=== PATIENT | female | born 1955 | race Caucasian/White ===

== ENCOUNTER 2020-05-06 15:01 | Inpatient (IN) | payer MEDICARE, OTHER ==
[~2020-05-06] VITALS: Ht 177.8 cm; Wt 71.7 kg
[2020-05-06] MEDS ORDERED: OLAN10TA3 PO (15:34)
[2020-05-06] MEDS ORDERED: NICO-671 TP (15:34)
[2020-05-06] MEDS ORDERED: RISP1TAB97 PO (15:34)
--- NOTE | 2020-05-06 17:38 | NUR ---
dinner tray provided for pt.
--- NOTE | 2020-05-06 18:51 | NUR ---
pt daughter at bedside, braught clothing, pt got aggrevated and started to yell mike appiah. at bedside.
[2020-05-06] MEDS ORDERED: OLANZAPINE 5 MG TABLET ONE (18:58)
[2020-05-06] MEDS ORDERED: LORAZEPAM 1 MG TABLET ONE (18:58)
[2020-05-06] MEDS ORDERED: OLANZAPINE 5 MG TABLET PO ONE (19:00)
[2020-05-06] MEDS ORDERED: LORAZEPAM 0.5 MG TABLET PO ONE (19:00)
--- NOTE | 2020-05-06 19:26 | NUR ---
According to Violet Gan RN from [facility] patient was never placed on a psychiatric hold. They stated that patient, "wished to come for psychiatric admission voluntary". Despite the consultation note that they sent with the patient it states there that the patient will need to come in involuntarily for higher level of care.
--- NOTE | 2020-05-06 19:27 | NUR ---
[facility] has been contacted to come evaluate the patient. ETA within an hour,
--- NOTE | 2020-05-06 20:08 | NUR ---
Calli RN here for eval.
--- NOTE | 2020-05-06 20:57 | NUR ---
Covid swab collected and sent to laboratory.
--- NOTE | 2020-05-06 21:28 | NUR ---
Patient transported to MHU in stable condition.
[2020-05-06 21:30] VITALS: BP 99/67
[2020-05-06] MEDS ORDERED: BLOOD SUGAR DIAGNOSTIC 1 EACH STRIP VI ONE (21:30)
[2020-05-06] MEDS ORDERED: MAG HYDROX/AL HYDROX/SIMETH 30 ML LIQUID UDC PO PRN (21:30)
[2020-05-06] MEDS ORDERED: TEMAZEPAM 7.5 MG CAPSULE PO PRN (21:30)
[2020-05-06] MEDS ORDERED: MAGNESIUM HYDROXIDE 30 ML LIQUID UDC PO PRN (21:30)
--- NOTE | 2020-05-06 22:50 | NUR ---
GPS ADMISSION NOTE : Patient is a 64 year old female , brought in by ambulance , to [facility] from [facility] in [place] on a 5150 for GD. Per the hold, patient was staying with her daughter and became increasingly agitated, verbally abusive and paranoid. Hold states patient has a history of being Schizophrenic and has stopped taking her medications for a month. Upon face to face evaluation, patient presents calm , alert and oriented. When jingle writer was interviewing patient, the patient made delusional statements and was unable to verbalize clearly what brought her into the hospital. Patient minimized the interactions with her daughter and said " [place] and [place] in [place]. It makes me so mad that my daughter would bring me to the hospital against my will and for no reason". According to the report from the ER , this patient had eloped from [facility] and was found when daughter went to look for her in her car and brought her back. At that time it is reported that the patient was agitated, and required medication. This patient is disorganized and unable to engage in any meaningful conversation without tangential speech. A copy of the advisement and a Patients Rights Handbook was provided to the patient along with a orientation to the unit and the rules. Patient took a shower and declined PRN medications. VS are stable and belongings inventoried and put in the locker. Continuing to monitor the patient for safety and possible behavior escalation.
--- NOTE | 2020-05-07 06:04 | NUR ---
After patients admission process, patient went to bed and slept 7.00 hours. No issues noted during the night.
[2020-05-07 07:30] VITALS: BP 126/85
[2020-05-07] MEDS: NICOTINE 21 MG/24HR PATCH TD SCH (08:40)
[2020-05-07] MEDS: DIVALPROEX 250 MG TABLET.DR PO SCH ×3 (11:47→16:40)
[2020-05-07] MEDS: risperiDONE 1 MG/ML UDC GT SCH ×2 (11:47→16:40)
--- NOTE | 2020-05-07 11:55 | NUR ---
SANJAY Initial Discharge Plan: Patient was currently residing at home [address] [place] [address] with daughter Jez Fernandez ([phone]). Patient would like SNF placement upon discharge. SANJAY discussed the possibility of SNF placement. SW left voicemail for patient's daughter, Jez ([phone]). SANJAY will continue to work with patient, family, and MD to ensure a safe and proper discharge plan.
--- NOTE | 2020-05-07 11:56 | NUR ---
Firearms Report: Gimp Tacker completed and submitted a [employer] firearms report for 5150 grave disability certifications. A copy of report has been placed in patient chart.
--- NOTE | 2020-05-07 12:13 | NUR ---
Brief Substance Abuse Intervention: Patient was provided with a brief substance abuse intervention and referred to the following substance abuse programs: [facility] ([phone]); [facility] [address] [place] [address] ([phone]); [facility] [address] [facility] [address] ([phone]); [facility] ([phone]); [facility] ([phone]); [facility] ([phone]); [facility] ([phone]).
[2020-05-07 16:00] VITALS: BP 104/75
[2020-05-07] MEDS: LORAZEPAM 0.5 MG TABLET PO PRN (17:30)
--- NOTE | 2020-05-07 17:39 | NUR ---
Patient continue behavioral monitoring, anxious and agitation noted during rounds. Patient ativan 05mg PRN PO given with good effect. will continue monitor
[2020-05-07 20:21] VITALS: BP 101/68
--- NOTE | 2020-05-08 06:51 | NUR ---
PT SLEPT 5.15 H. PT IN NO ACUTE DISTRESS. SAFETY AND COMFORT PROVIDED. PT ATIVAN PRN AND TYLENOL PRN WASTED ON THE PYXIS AND WITNESSED BY ANOTHER RN. WILL CONTINUE TO MONITOR.
[2020-05-08 07:30] VITALS: BP 121/83
[2020-05-08] MEDS: NICOTINE 21 MG/24HR PATCH TD SCH (10:08)
[2020-05-08] MEDS: DIVALPROEX 250 MG TABLET.DR PO SCH ×3 (10:09→17:29)
[2020-05-08] MEDS: risperiDONE 1 MG/ML UDC GT SCH (10:09)
--- NOTE | 2020-05-08 10:55 | NUR ---
SANJAY Family Contact: SANJAY left voicemail for patient's daughter, Jez ([phone]).
[2020-05-08 16:41] VITALS: BP 148/93
[2020-05-08] MEDS: risperiDONE 1 MG/ML UDC PO SCH (17:29)
[2020-05-08 20:11] VITALS: BP 140/96
--- NOTE | 2020-05-08 21:20 | NUR ---
Received patient reading in her room. No s/s of distress noted. Patient is calm and goal oriented to finding housing and her sons. Engages in meaningful conversation when initiated. q15 min checks for safety in place.
[2020-05-09] MEDS: ACETAMINOPHEN 325 MG TABLET PO PRN ×2 (04:03→10:35)
--- NOTE | 2020-05-09 06:39 | NUR ---
Patient slept 1 hour. PRN Restoril and Tylenol given per order. Pt anxious through out the night, pacing around her room, and reading materials. Goal oriented to leave stating "Im being held here against my will". No s/s of acute distress or behavioral disruptions noted. All needs were met and attended to. Q15 min safety checks remain intact.
[2020-05-09 07:30] VITALS: BP 141/111
[2020-05-09] MEDS: DIVALPROEX 250 MG TABLET.DR PO SCH ×3 (08:36→16:10)
[2020-05-09] MEDS: NICOTINE 21 MG/24HR PATCH TD SCH (08:37)
[2020-05-09] MEDS: risperiDONE 1 MG/ML UDC PO SCH ×2 (08:37→16:10)
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
--- NOTE | 2020-05-09 10:47 | NUR ---
SANJAY SNF Referral: SW faxed patient's referral packet to [facility] attention to Anat admin coord. ([phone]) for review and possible placement.
--- NOTE | 2020-05-09 11:52 | NUR ---
SANJAY Individual Therapy Note: SW met with patient today and provided brief individual counseling to address patient's presenting problem of delusional thought content. Patient continues to has poor insight into her mental illness. Patient states "I don't have a mental problem I was brought for heart evaluation and medical medications". SW redirected patient and helped to gain insight into the reason for her hospitalization. SANJAY however discussed briefly patient's discharge plan. Patient stated she would like SNF placement. SANJAY validated and informed that we are working on SNF placement. Patient refuses to accept reality at this time. SW will remain available for patient for continued supportive counseling.
[2020-05-09 16:00] VITALS: BP 150/98
--- NOTE | 2020-05-09 19:39 | NUR ---
PATIENT REMAINS COOPERATIVE WITH TREATMENT PLAN. COMPLIENT WITH MEDICATIONS. NO IM GIVEN SAFETY PRECAUTIONS IN PLACE. WILL REPORT TO NIGHT NURSE.
[2020-05-09 20:15] VITALS: BP 114/68
--- NOTE | 2020-05-10 06:42 | NUR ---
GPS: Remain calm and cooperative with nursing care. took shower this morning.self care. slept 7.30 hrs through the night. No s/s of acute distress or behavioral disruptions noted. All needs were met and attended to. Q15 min safety checks. resting in bed comfortably. continue plan of care
[2020-05-10 07:30] VITALS: BP 125/90
[2020-05-10] MEDS: DIVALPROEX 250 MG TABLET.DR PO SCH ×3 (10:11→17:43)
[2020-05-10] MEDS: NICOTINE 21 MG/24HR PATCH TD SCH (10:12)
[2020-05-10] MEDS: risperiDONE 1 MG/ML UDC PO SCH ×2 (10:12→17:43)
[2020-05-10] MEDS: ACETAMINOPHEN 325 MG TABLET PO PRN (15:12)
[2020-05-10 15:30] VITALS: BP 124/80
[2020-05-10 20:13] VITALS: BP 131/99
--- NOTE | 2020-05-11 05:43 | NUR ---
Shift End Report: Vs stable. Ambulatory with slow steady gait. No fall/injury. Been calm, cooperative and compliant to plan of care. No agitation, paranoia and delusion . Slept 5.45 hours. No complaint presented throughout the night. Continue current plan of care.
[2020-05-11 07:30] VITALS: BP 141/102
[2020-05-11] MEDS: NICOTINE 21 MG/24HR PATCH TD SCH (08:36)
[2020-05-11] MEDS: DIVALPROEX 250 MG TABLET.DR PO SCH ×3 (08:36→16:54)
[2020-05-11] MEDS: risperiDONE 1 MG/ML UDC PO SCH ×2 (08:36→16:55)
--- NOTE | 2020-05-11 09:00 | NUR ---
ALERT AND ORIENTED BUT IS FORGETFUL ABLE TO RELAY NEEDS SHE IS COMPLIANT WITH MEDICATIONS AND CARE WILL CONTINUE TO PROVIDE SAFE AND THERAPEUTIC ENVIRONMENT AT ALL TIMES.
[2020-05-11 16:00] VITALS: BP 146/106
--- NOTE | 2020-05-11 18:00 | NUR ---
COMPLIANT WITH MEDICATIONS AND CARE WAS CONVERSING WITH HER FAMILY ON THE PHONE FOR A WHILE AND THEN WAS SHOWING ME HER DRAWINGS IN HER BOOK SEEM TO BE IN GOOD SPIRITS THIS EVENING WILL CONTINUE TO PROVIDE SAFE AND THERAPEUTIC ENVIRONMENT AT ALL TIMES
[2020-05-11 20:25] VITALS: BP 132/94
--- NOTE | 2020-05-12 05:52 | NUR ---
Patient alert and oriented x3. At the beginning of the shift, patient requested a sleeping pill but when functional tester typewriters brought it, the patient was already asleep. Medication returned . Patient slept 8.00 hours and is still asleep at this time. Water Pollution Scientist spoke with patient and she denied SI and did not have any delusional thinking noted during the shift. Continuing to monitor for safety and continuing with treatment plan.
[2020-05-12 07:30] VITALS: BP 148/95
[2020-05-12] MEDS: risperiDONE 1 MG/ML UDC PO SCH ×2 (08:36→16:51)
[2020-05-12] MEDS: NICOTINE 21 MG/24HR PATCH TD SCH (08:36)
[2020-05-12] MEDS: DIVALPROEX 250 MG TABLET.DR PO SCH ×4 (08:36→16:42)
--- NOTE | 2020-05-12 09:00 | NUR ---
PATIENT IS ALERT ORIENTED BUT IS FORGETFUL DELUSIONAL AND DEPRESSED HAS BEEN COMPLIANT WITH HER AM MEDICATIONS SPENDS A LOT OF TIME IN HER ROOM ENCOURAGED TO ATTEMPT TO ENGAGE WITH OTHER PATIENTS AND PARTICIPATE IN ACTIVITIES ABLE WILL CONTINUE TO PROVIDE SAFE AND THERAPEUTIC ENVIRONMENT AT ALL TIMES.
--- NOTE | 2020-05-12 12:20 | NUR ---
PATIENT REFUSED HER DEPAKOTE STATED THAT SHE ALREADY TOOK IT AND DID NOT WANT TO KEEP TAKING MEDICATIONS REASSURED HER THAT SHE TOOK IT THIS MORNING AND SINCE IT WAS ORDERED 3 TIMES A DAY SHE NEEDED TO TAKE IT AGAIN NOW BUT SHE CONTINUED TO REFUES TO TAKE IT.
[2020-05-12 15:25] VITALS: BP 131/84
--- NOTE | 2020-05-12 17:00 | NUR ---
CALL RECEIVED FROM PATIENTS DAUGHTER LOLIS STATED THAT PATIENT HAD CALLED HER AND WANTS HER TO PICK HER UP TOMORROW THAT SHE WILL BE DISCHARGED IN THE MORNING EXPLAINED TO THE DAUGHTER THAT IN FACT THERE IS NO DISCHARGE ORDER FOR HER MOM TO BE DISCHARGED TOMORROW AND THAT SHE SHOULD GET IN TOUCH WITH THE COMPUTER APPLICATION DEVELOPER KYLIE FOR MORE DETAILS I ALSO SPOKE WITH THE PATIENT AND INFORMED HER THAT SHE IS NOT BEING DISCHARGED TOMORROW BUT SHE STATED THAT SHE WILL LIKE TO LEAVE TOMORROW BECAUSE SHE WAS NOT SURE IF HER INSURANCE WILL BE ABLE TO COVER HER STAY HERE.REASSURED PATIENT THAT THIS WILL BE WORKED OUT BY THE DIP STAND LOADER HAND I TUBE BENDER WILL ENDORSE FOR THE COMPUTER APPLICATION DEVELOPER TO REASSURE PATIENT TOMORROW.
[2020-05-12 20:18] VITALS: BP 142/78
[2020-05-12] MEDS: LORAZEPAM 0.5 MG TABLET PO PRN (20:24)
[2020-05-13] MEDS: ACETAMINOPHEN 325 MG TABLET PO PRN ×2 (01:19→16:19)
[2020-05-13] MEDS: LORAZEPAM 0.5 MG TABLET PO PRN (04:33)
--- NOTE | 2020-05-13 05:46 | NUR ---
Patient slept for a total of 5.30 hours last night. At the start of the shift, this patient was unable to engage in any meaningful conversation without becoming delusional. This patient is fixated on going [place] When discussing medication compliance upon discharge patient stated, "I'll be okay with my big bag of joyce." Humanities And Languages Professor tried to encourage medication compliance per physician orders with minimal response. Will continue to educate patient, redirect and monitor behaviors.
[2020-05-13 07:30] VITALS: BP 130/91
[2020-05-13] MEDS: DIVALPROEX 250 MG TABLET.DR PO SCH ×3 (08:04→16:19)
[2020-05-13] MEDS: risperiDONE 1 MG/ML UDC PO SCH ×2 (08:04→16:19)
[2020-05-13] MEDS: NICOTINE 21 MG/24HR PATCH TD SCH (08:04)
--- NOTE | 2020-05-13 09:29 | NUR ---
SANJAY Family Contact: SANJAY spoke with patient's daughterJez ([phone]) regarding updated treatment and discharge plan.
--- NOTE | 2020-05-13 09:34 | NUR ---
patient alert and oriented. she is cooperative, redirectable, but is anxious, guarded, withdrawn to her room, and appears suspicious of staff. patient denies SI/HI, denies AH/VH. patient is adherent with medication, no adverse reaction noted. patient unkempt in her own clothing. patient encouraged to participate in the unit milieu. patient able to perform self care and ADL's independently. provided with education about impulse control and safety.
[2020-05-13 15:21] VITALS: BP 101/65
--- NOTE | 2020-05-13 15:36 | NUR ---
SANJAY Individual Therapy Note: SW met with patient today and provided brief individual counseling to address patient's presenting problem of delusional thought content. Patient presents withdrawn and isolative in her room. Patient appears disheveled and forgetful. patient continues to minimize her mental illness and has poor insight into her presenting problems. SANJAY discussed discharge planing with the patient. Patient is agreeable with going to [facility] upon discharge. SW will remain available for patient for continued supportive counseling.
[2020-05-13] MEDS: ATORVASTATIN 20 MG TABLET PO SCH (20:03)
[2020-05-13 20:16] VITALS: BP 121/81
[2020-05-13] MEDS: TEMAZEPAM 15 MG CAPSULE PO PRN (20:55)
[2020-05-14] MEDS: ACETAMINOPHEN 325 MG TABLET PO PRN ×4 (01:15→21:16)
[2020-05-14 07:46] LABS: BASOPHILS # (AUTO) 0.1 K/uL (0.0-8.0); BASOPHILS % (AUTO) 1.4 % (0.0-2.0); EOSINOPHILS # (AUTO) 0.5 K/uL (0.0-0.7); EOSINOPHILS % (AUTO) 7.5 % (0.0-7.0); HEMATOCRIT 41.7 % (31.2-41.9); HEMOGLOBIN 13.8 g/dL (10.9-14.3); LYMPHOCYTES # (AUTO) 2.1 K/uL (20.0-40.0); LYMPHOCYTES % (AUTO) 31.4 % (20.5-51.5); MEAN CORPUSCULAR HEMOGLOBIN 29.7 uug (24.7-32.8); MEAN CORPUSCULAR HGB CONC 33 g/dL (32.3-35.6); MEAN CORPUSCULAR VOLUME 89.8 fL (75.5-95.3); MONOCYTES # (AUTO) 0.6 K/uL (2.0-10.0); MONOCYTES % (AUTO) 8.6 % (0.0-11.0); NEUTROPHILS # (AUTO) 3.5 K/uL (1.8-8.9); NEUTROPHILS % (AUTO) 51.1 % (38.5-71.5); PLATELET COUNT (AUTO) 248 K/uL (179-408); RED BLOOD CELL COUNT(AUTO) 4.65 MIL/uL (3.63-4.92); WHITE BLOOD COUNT (AUTO) 6.8 K/uL (3.8-11.8)
[2020-05-14 07:58] LABS: BILIRUBIN,TOTAL 0.4 mg/dL (0.2-1.0); CREATININE 0.7 mg/dL (0.6-1.3); MAGNESIUM 2.3 mg/dL (1.8-2.4); PHOSPHOROUS 3.8 mg/dL (2.5-4.9); TOTAL PROTEIN, SERUM 6.7 g/dL (6.4-8.2)
[2020-05-14 08:06] LABS: THYROID STIMULATING HORMONE 2.91 mIU/mL (0.358-3.740)
[2020-05-14 08:23] VITALS: BP 149/90
[2020-05-14] MEDS: DIVALPROEX 250 MG TABLET.DR PO SCH ×3 (09:27→17:17)
[2020-05-14] MEDS: risperiDONE 1 MG/ML UDC PO SCH ×2 (09:29→17:18)
[2020-05-14] MEDS: NICOTINE 21 MG/24HR PATCH TD SCH (09:29)
--- NOTE | 2020-05-14 10:10 | NUR ---
Received pt ambulating in hallway, alert, able to verbalize needs. Pt noted isolative, anxious, and fixated on health concerns and medications, reassurance provided. Pt reported toothache pain, PRN Tylenol administered per order. Medications administered per order, pt adherent, no a/r noted. When asked if she knew where she was, pt stated "in hell". Redirection and reality orientation provided, encouraged pt to express feelings and participate in milieu. Pt denies SI/HI/VH/AH at this time. Pt able to verbally CFS. Pt able to ambulate safely and perform self care. Safe environment ensured. Will continue to monitor.
[2020-05-14 16:00] VITALS: BP 123/93
[2020-05-14 16:50] LABS: *BILIRUBIN,URIN NEGATIVE (NEGATIVE); *BLOOD, URINE NEGATIVE (NEGATIVE); *CLARITY,URINE CLEAR (CLEAR); *COLOR,URINE LIGHT YELLOW (YELLOW); *KETONES,URINE NEGATIVE (NEGATIVE); *UROBILINOGEN,URINE 0.2 E.U./dl (NORMAL); LEUKOCYTE ESTERASE ,URINE NEGATIVE (NEGATIVE); NITRITE, URINE NEGATIVE (NEGATIVE); UGLUCOSE NEGATIVE (NEGATIVE)
--- NOTE | 2020-05-14 19:05 | NUR ---
EOSS: Pt in ambulating in hallway, asking for PRN pain medication. This global technical writer informed pt that it was change of shift and report needed to be given before medications could be administered. Pt continued fixation on health and medications. Reassurance and redirection provided PRN. Due medications given per order, no a/r noted. VSS. Pt able to ambulate safely and provide self care. Pt with minimal participation in group and with peers. Safe environment and fall precautions maintained. Will endorse care to marina manager nurse.
[2020-05-14] MEDS: ATORVASTATIN 20 MG TABLET PO SCH (20:03)
[2020-05-14 20:06] VITALS: BP 131/86
[2020-05-14] MEDS: TEMAZEPAM 15 MG CAPSULE PO PRN (21:16)
[2020-05-15] MEDS: ACETAMINOPHEN 325 MG TABLET PO PRN ×2 (05:51→17:50)
[2020-05-15 07:30] VITALS: BP 119/82
[2020-05-15] MEDS: DIVALPROEX 250 MG TABLET.DR PO SCH ×3 (08:17→16:18)
[2020-05-15] MEDS: NICOTINE 21 MG/24HR PATCH TD SCH (08:17)
[2020-05-15] MEDS: risperiDONE 1 MG/ML UDC PO SCH ×2 (08:29→16:19)
[2020-05-15 16:37] VITALS: BP 141/108
[2020-05-15 20:12] VITALS: BP 128/84
[2020-05-15] MEDS: ATORVASTATIN 20 MG TABLET PO SCH (20:22)
[2020-05-16] MEDS: ACETAMINOPHEN 325 MG TABLET PO PRN ×3 (00:34→20:45)
[2020-05-16 07:30] VITALS: BP 147/101
[2020-05-16] MEDS: risperiDONE 1 MG/ML UDC PO SCH ×2 (08:53→16:32)
[2020-05-16] MEDS: DIVALPROEX 250 MG TABLET.DR PO SCH ×3 (08:53→16:32)
[2020-05-16] MEDS: NICOTINE 21 MG/24HR PATCH TD SCH (08:54)
--- NOTE | 2020-05-16 15:00 | NUR ---
Gps/Carpet Cutter- Encouraged to attend her group therapy, Not interacting with her roommate, making simple needs known.
--- NOTE | 2020-05-16 15:35 | NUR ---
SANJAY Individual Therapy Note: SW met with patient today and provided brief individual counseling to address patient's presenting problem of delusional thought content. Patient was observed laying in her bed with her eyes closed and did not make too much eye contact. Patient presents anxious about her discharge plan. SW discussed discharge plan with the patient and reassured her of the SNF placement in [place] as she wanted. Patient was more receptive to the information and was thankful. SW will remain available for patient for continued supportive counseling.
[2020-05-16 16:46] VITALS: BP 113/74
[2020-05-16 20:00] VITALS: BP 124/82
[2020-05-16] MEDS: ATORVASTATIN 20 MG TABLET PO SCH (20:45)
[2020-05-16] MEDS: TEMAZEPAM 15 MG CAPSULE PO PRN (22:51)
[2020-05-17] MEDS: ACETAMINOPHEN 325 MG TABLET PO PRN ×2 (03:59→09:46)
--- NOTE | 2020-05-17 06:44 | NUR ---
PT SLEPT 8 H. PT IN NO ACUTE DISTRESS. PT GIVEN TYLENOL PRN AT 2045Hand 0349h . RESTORIL 15MG PRN GIVEN AT 2251H .PRESCRIBED MEDICATION GIVEN AND PT TOLERATED IT WELL. SAFETY AND COMFORT PROVIDED. ALL NEEDS ARE MET. WILL ENSORSE TO INCOMING NURSE FOR CONTINUITY OF CARE.
[2020-05-17 07:30] VITALS: BP 118/89
[2020-05-17] MEDS: DIVALPROEX 250 MG TABLET.DR PO SCH ×3 (08:30→18:35)
[2020-05-17] MEDS: NICOTINE 21 MG/24HR PATCH TD SCH (08:30)
[2020-05-17] MEDS: risperiDONE 1 MG/ML UDC PO SCH ×2 (08:30→18:35)
--- NOTE | 2020-05-17 10:39 | NUR ---
EARLY ENTRY- DISCHARGE NOTE FOR 05/18/20: Patient will be discharged to assisted facility [facility] [address] [place] [address] ([phone]) via Ambulance transportation at 11AM today. Group Work Program Aide spoke with Yamilet, Plastic Surgery Specialist at facility who confirmed that patient has been accepted at their facility today. Patient is alert and oriented x4. Patient is not able to plan for self-care at this time but is willing to accept care provided for her at the facility. Patient denies suicidal or homicidal ideation. Patient is aware and agreeable with discharge plans. Patient presents with euthymic mood and congruent affect. Patient will continue to follow-up with Psychiatrist Dr. Dacosta and Plasterer Spot Dr. Sharma at [facility]. Patients daughter Jez Fernandez ([phone]) is aware and agreeable with discharge plan.
--- NOTE | 2020-05-17 10:43 | NUR ---
SANJAY Family Contact: SW spoke with patients daughter Jez Fernandez ([phone]) who is aware and agreeable with discharge plan for patient tomorrow to [facility].
[2020-05-17 15:26] VITALS: BP 128/93
[2020-05-17] MEDS: ATORVASTATIN 20 MG TABLET PO SCH (20:13)
[2020-05-17 20:57] VITALS: BP 148/90
--- NOTE | 2020-05-17 22:01 | NUR ---
Received pt resting in bed and talking to her roommate. AAO x3. No acute distress noted. Denies SI. Due med given as ordered. Pt is for discharge tomorrow. Safety measures maintained. Will continue to monitor.
[2020-05-18] MEDS: ACETAMINOPHEN 325 MG TABLET PO PRN (01:25)
[2020-05-18] MEDS: TEMAZEPAM 15 MG CAPSULE PO PRN (01:26)
[2020-05-18 07:30] VITALS: BP 92/61
[2020-05-18] MEDS: risperiDONE 1 MG/ML UDC PO SCH (08:41)
[2020-05-18] MEDS: NICOTINE 21 MG/24HR PATCH TD SCH (08:41)
[2020-05-18] MEDS: DIVALPROEX 250 MG TABLET.DR PO SCH ×2 (08:41→12:27)
--- NOTE | 2020-05-18 13:00 | NUR ---
GPS: Nursing Notes: Discharge Notes: Patient is awake and responding to her name, cooperative with nursing care, compliant with her medications, following staff directions, A/Ox3-4, denies SI/HI, denies AH/VH, denies any pain or discomfort at this time, denies SOB. Patient discharge to [facility] at [address] [place] [address] [phone] , report given to facility's nurse - MONY Lyles, transported to facility via ambulance, took all her belongings with her. Patient will continue to follow-up with Psychiatrist Dr. Dacosta and Hospital Attendant Dr. Sharma at [facility]. Patients daughter Jez Fernandez ([phone]) informed of her discharge by marriage and family social worker.
== END 2020-05-18 13:00 | DRG 885 ==
LOC: ER 15:01 → GPS 21:20
PROVIDERS: ADMIT Psychiatry & Neurology Psychiatry; ATTEND Internal Medicine
DX: F25.9 Schizoaffective disorder, unspecified (principal); E78.5 Hyperlipidemia, unspecified; F12.10 Cannabis abuse, uncomplicated; Z91.14 Patient's other noncompliance with medication regimen; Z20.822 Contact with and (suspected) exposure to COVID-19; Z87.891 Personal history of nicotine dependence
CPT/HCPCS: 36415; 71045; 80164; 83735; 84100; 84443; 85025; 93005; A4663; J3490